=== PATIENT | male | born 1955 | race Caucasian/White ===

== ENCOUNTER 2024-11-27 16:17 | Inpatient (IN) | payer OTHER ==
[~2024-11-27] VITALS: Ht 175.3 cm; Wt 108.9 kg
[2024-11-27] MEDS: ONDANSETRON HCL 4MG/2ML INJ IV STA (16:53)
[2024-11-27] MEDS: METHYLPREDNISOLONE SOD SUCC 125MG/2ML (ACT-O-VIAL) IV STA (16:53)
[2024-11-27] MEDS: MORPHINE SULFATE 4 MG/ML INJ (FOR IV/IM USE) IV STA (16:54)
[2024-11-27] MEDS: IPRATROPIUM BROMIDE (0.02%) 0.5MG/2.5ML NEB HHN STA (16:58)
[2024-11-27] MEDS: ALBUTEROL (0.083%) 2.5MG/3ML NEB HHN STA (16:58)
[2024-11-27 17:07] LABS: BASOPHILS % 1.1 % (0.0-2.0); EOSINOPHILS % 1.0 % (0.0-5.0); HEMATOCRIT. 43.2 % (42.0-52.0); HEMOGLOBIN. 14.2 g/dL (14.0-18.0); LYMPHOCYTES % 23.7 % (20.0-50.0); MEAN PLATELET VOLUME 10.1 fl (7.4-10.4); MONOCYTES % 9.5 % (2.0-8.0); NEUTROPHILS % 64.7 % (40.0-76.0); PLATELET 207 x1000/uL (130-400); RED BLOOD CELL COUNT 4.76 mill/uL (4.7-6.1); RED CELL DISTRIBUTION WIDTH 14.3 % (11.6-14.6)
[2024-11-27 17:24] LABS: CREATININE 1.2 mg/dL (0.6-1.3); UREA NITROGEN BLOOD 28 mg/dL (9-23)
[2024-11-27 17:25] LABS: TROPONIN I HIGH SENSITIVITY 26 ng/L (3.0-53)
[2024-11-27] MEDS ORDERED: ZOLPIDEM TARTRATE 5MG TABLET PO PRN (18:00)
[2024-11-27] MEDS ORDERED: ONDANSETRON HCL 4MG/2ML INJ IV PRN (18:00)
[2024-11-27 18:16] VITALS: PULSE 85; RESP 13; O2SAT 97
[2024-11-27 19:26] VITALS: BP 137/83; PULSE 107; RESP 19; TEMP 36.5; O2SAT 95
[2024-11-27 19:37] VITALS: BP 137/88; PULSE 97; RESP 18; TEMP 37
[2024-11-27 20:21] VITALS: PULSE 100; RESP 20; O2SAT 97
[2024-11-27] MEDS: IPRATROPIUM/ALBUTEROL 0.5-3(2.5)MG/3ML NEB NEB SCH (20:21)
[2024-11-27 20:40] LABS: TROPONIN I HIGH SENSITIVITY 20 ng/L (3.0-53)
[2024-11-27] MEDS: ENOXAPARIN 30MG/0.3ML SYR SUBCUT SCH (20:57)
[2024-11-27] MEDS: METHYLPREDNISOLONE SOD SUCC 40MG/ML (ACT-O-VIAL) IV SCH (22:38)
[2024-11-28] VITALS (12 sets, daily range): BP systolic 110–165; BP diastolic 59–80; PULSE 77–109; RESP 13–25; TEMP 36.3–36.8; O2SAT 93–99
[2024-11-28 07:41] LABS: BASOPHILS % 0.1 % (0.0-2.0); EOSINOPHILS % 0.1 % (0.0-5.0); HEMATOCRIT. 40.7 % (42.0-52.0); HEMOGLOBIN. 13.3 g/dL (14.0-18.0); LYMPHOCYTES % 9.1 % (20.0-50.0); MEAN PLATELET VOLUME 10.2 fl (7.4-10.4); MONOCYTES % 1.2 % (2.0-8.0); NEUTROPHILS % 89.5 % (40.0-76.0); PLATELET 162 x1000/uL (130-400); RED BLOOD CELL COUNT 4.54 mill/uL (4.7-6.1); RED CELL DISTRIBUTION WIDTH 14.3 % (11.6-14.6)
[2024-11-28 07:56] LABS: CREATININE 1.2 mg/dL (0.6-1.3); UREA NITROGEN BLOOD 28 mg/dL (9-23)
[2024-11-28 07:57] LABS: TROPONIN I HIGH SENSITIVITY 13 ng/L (3.0-53)
[2024-11-28] MEDS: PANTOPRAZOLE SODIUM 40 MG/VIAL IV SCH (08:55)
[2024-11-28] MEDS ORDERED: DIPHENHYDRAMINE 50MG/ML VIAL IV NR (10:30)
[2024-11-28] MEDS ORDERED: NALOXONE HCL 0.4MG/ML VIAL IV PRN (10:45)
[2024-11-28] MEDS: DIPHENHYDRAMINE 50MG/ML VIAL IV SCH (11:32)
[2024-11-28] MEDS: ACETAMINOPHEN 325MG TABLET PO PRN (11:37)
[2024-11-28] MEDS: CLONIDINE 0.1MG TABLET PO PRN (16:30)
[2024-11-28 16:53] LABS: TROPONIN I HIGH SENSITIVITY 13 ng/L (3.0-53)
[2024-11-28] MEDS: MONTELUKAST SODIUM 10MG TABLET PO SCH (17:24)
[2024-11-28] MEDS ORDERED: DEXTROSE 50% WATER 50ML SYRINGE IV PRN (21:15)
[2024-11-28] MEDS: BLOOD SUGAR DIAGNOSTIC STRIP TEST SCH (22:00)
[2024-11-28] MEDS: INSULIN LISPRO 100 UNITS/ML SUBCUT SCH (22:54)
[2024-11-29] VITALS (11 sets, daily range): BP systolic 109–144; BP diastolic 74–91; PULSE 72–91; RESP 12–28; TEMP 36.2–36.7; O2SAT 90–97
[2024-11-29 06:47] LABS: HEMATOCRIT. 39.4 % (42.0-52.0); HEMOGLOBIN. 13.0 g/dL (14.0-18.0); MEAN PLATELET VOLUME 10.5 fl (7.4-10.4); PLATELET 162 x1000/uL (130-400); RED BLOOD CELL COUNT 4.40 mill/uL (4.7-6.1); RED CELL DISTRIBUTION WIDTH 14.5 % (11.6-14.6)
[2024-11-29] MEDS ORDERED: BLOOD SUGAR DIAGNOSTIC STRIP TEST SCH (06:50)
[2024-11-29 07:04] LABS: CREATININE 1.1 mg/dL (0.6-1.3); UREA NITROGEN BLOOD 29 mg/dL (9-23)
[2024-11-29] MEDS ORDERED: INSULIN LISPRO 100 UNITS/ML SUBCUT SCH (07:20)
[2024-11-29 07:49] LABS: BAND% 7.0 % (1.0-6.0); LYMPHOCYTES % MANUAL 4.0 % (20.0-50.0); MONOCYTES % MANUAL 1.0 % (2.0-8.0); NEUTROPHILS % MANUAL 88.0 % (45.0-75.0)
[2024-11-29 07:50] LABS: PLATELET ESTIMATE NORMAL
[2024-11-29] MEDS ORDERED: DIPHENHYDRAMINE 50MG/ML VIAL IV PRN (12:15)
[2024-11-29 12:41] LABS: *AMPHETAMINES SCREEN URINE NEGATIVE (NEGATIVE); *BARBITURATES SCREEN URINE NEGATIVE (NEGATIVE); *BENZODIAZEPINES SCREEN URINE NEGATIVE (NEGATIVE); *COCAINE SCREEN URINE NEGATIVE (NEGATIVE); CANNABINOID URINE SCREEN NEGATIVE (NEGATIVE); ECSTASY MDMA SCREEN URINE NEGATIVE (NEGATIVE); METHADONE URINE SCREEN NEGATIVE (NEGATIVE); OPIATES URINE SCREEN PRESUMPTIVE POSITIVE (NEGATIVE); PHENCYCLIDINE URINE SCREEN NEGATIVE (NEGATIVE)
[2024-11-29] MEDS: GUAIFENESIN-DM 200MG-20MG/10ML UDC PO PRN (20:44)
[2024-11-29] MEDS ORDERED: IOHEXOL-350 100 ML BOTTLE ONE (23:39)
[2024-11-30] VITALS (12 sets, daily range): BP systolic 136–152; BP diastolic 47–91; PULSE 72–110; RESP 10–20; TEMP 36.6–36.8; O2SAT 94–100
[2024-11-30 07:26] LABS: HEMATOCRIT. 40.5 % (42.0-52.0); HEMOGLOBIN. 13.4 g/dL (14.0-18.0); MEAN PLATELET VOLUME 10.6 fl (7.4-10.4); PLATELET 145 x1000/uL (130-400); RED BLOOD CELL COUNT 4.50 mill/uL (4.7-6.1); RED CELL DISTRIBUTION WIDTH 14.9 % (11.6-14.6)
[2024-11-30 07:42] LABS: CREATININE 1.1 mg/dL (0.6-1.3)
[2024-11-30 07:43] LABS: UREA NITROGEN BLOOD 29 mg/dL (9-23)
[2024-11-30 09:39] LABS: BAND% 9.0 % (1.0-6.0); LYMPHOCYTES % MANUAL 9.0 % (20.0-50.0); MONOCYTES % MANUAL 3.0 % (2.0-8.0); NEUTROPHILS % MANUAL 79.0 % (45.0-75.0); PLATELET ESTIMATE NORMAL
[2024-11-30] MEDS ORDERED: FLUT1BLS IH (15:20)
[2024-11-30] MEDS ORDERED: OMEP20CA14 PO (15:20)
[2024-11-30] MEDS ORDERED: ATOR40TA70 PO (15:20)
[2024-11-30] MEDS ORDERED: ALLO100T PO (15:20)
[2024-11-30] MEDS ORDERED: FLUT16SP15 NS (15:20)
[2024-11-30] MEDS ORDERED: METF-416 PO (15:20)
[2024-11-30] MEDS ORDERED: MIRT7.5T11 PO (15:20)
[2024-11-30] MEDS ORDERED: ALFU10TA46 PO (15:20)
[2024-11-30] MEDS ORDERED: LEVO25TA7 PO (15:20)
[2024-12-01] VITALS (13 sets, daily range): BP systolic 97–152; BP diastolic 74–97; PULSE 78–96; RESP 14–29; TEMP 36.4–36.7; O2SAT 90–99
[2024-12-01] MEDS: METHYLPREDNISOLONE SOD SUCC 40MG/ML (ACT-O-VIAL) IV SCH (08:23)
[2024-12-01 14:59] LABS: BG BASE EXCESS -0.8 mmol/L (-2.0-3.0); BG CARBOXYHEMOGLOBIN 0.8 % (0.5-1.5); BG DEOXYHEMOGLOBIN 5.8 % (0.0-5.0); BG FRACTION INSPIRED OXYGEN 21; BG HCO3 ACT 22.4 mmol/L (21.0-28.0); BG METHEMOGLOBIN 0.1 % (0.5-1.5); BG OXYGEN SATURATION 94.1 % (94.0-98.0); BG OXYHEMOGLOBIN 93.3 % (94.0-98.0); BG PCO2 33.0 mmHg (35.0-48.0); BG PH 7.449 (7.350-7.450); BG PO2 71.6 mmHg (83.0-108.0); BG SAMPLE SITE LEFT RADIAL; BG TOTAL HEMOGLOBIN 14.5 g/dL (13.5-17.5); BG VENT MODE ROOM AIR
[2024-12-01] MEDS: HYDROCODONE/ACETAMINOPHEN 5/325MG TABLET PO PRN (21:40)
[2024-12-02] VITALS (10 sets, daily range): BP systolic 132–179; BP diastolic 75–97; PULSE 67–104; RESP 13–19; TEMP 36.4–36.8; O2SAT 94–98
[2024-12-02] MEDS: LEVOTHYROXINE SODIUM 25MCG TABLET PO SCH (10:20)
[2024-12-03] VITALS: BP 144/69; PULSE 67; RESP 16; TEMP 36.7; O2SAT 94
[2024-12-03 04:00] VITALS: BP 151/71; PULSE 63; RESP 20; TEMP 37; O2SAT 94
[2024-12-03 08:00] VITALS: BP 106/90; PULSE 81; RESP 16; TEMP 36.4; O2SAT 96
[2024-12-03 12:00] VITALS: BP 140/88; PULSE 82; RESP 16; TEMP 36.8; O2SAT 98
[2024-12-03] MEDS ORDERED: ATOR40TA70 PO (13:28)
[2024-12-03] MEDS ORDERED: ALBU18HF2 IH (13:28)
[2024-12-03] MEDS ORDERED: FLUT1BLS IH (13:28)
[2024-12-03] MEDS ORDERED: LEVO25TA7 PO (13:28)
[2024-12-03] MEDS ORDERED: OMEP20CA14 PO (13:28)
[2024-12-03] MEDS ORDERED: ALLO100T PO (13:28)
[2024-12-03] MEDS ORDERED: MIRT7.5T11 PO (13:28)
[2024-12-03] MEDS ORDERED: ALFU10TA46 PO (13:28)
[2024-12-03] MEDS ORDERED: METF-416 PO (13:28)
[2024-12-03] MEDS ORDERED: IPRATROPIUM/ALBUTEROL 0.5-3(2.5)MG/3ML NEB HHN PRN (15:45)
[2024-12-03 16:00] VITALS: BP 126/98; PULSE 74; RESP 14; TEMP 36.7; O2SAT 99
[2024-12-03 20:00] VITALS: BP 118/65; PULSE 66; RESP 19; TEMP 36.3; O2SAT 96
[2024-12-04] VITALS: BP 131/59; PULSE 73; RESP 18; TEMP 36.4; O2SAT 95
[2024-12-04 04:00] VITALS: PULSE 68; RESP 16; O2SAT 96
[2024-12-04 08:00] VITALS: BP 110/57; PULSE 66; RESP 19; TEMP 36.7; O2SAT 96
[2024-12-04] MEDS: FAMOTIDINE 20MG TABLET PO SCH (08:25)
[2024-12-04 11:56] LABS: BG BASE EXCESS -0.1 mmol/L (-2.0-3.0); BG CARBOXYHEMOGLOBIN 0.8 % (0.5-1.5); BG DEOXYHEMOGLOBIN 3.0 % (0.0-5.0); BG FRACTION INSPIRED OXYGEN 21; BG HCO3 ACT 21.9 mmol/L (21.0-28.0); BG METHEMOGLOBIN 0.0 % (0.5-1.5); BG OXYGEN SATURATION 97.0 % (94.0-98.0); BG OXYHEMOGLOBIN 96.2 % (94.0-98.0); BG PCO2 29.0 mmHg (35.0-48.0); BG PH 7.495 (7.350-7.450); BG PO2 84.7 mmHg (83.0-108.0); BG SAMPLE SITE RIGHT RADIAL; BG TOTAL HEMOGLOBIN 15.6 g/dL (13.5-17.5); BG VENT MODE ROOM AIR
[2024-12-04 12:00] VITALS: BP 102/66; PULSE 88; RESP 20; TEMP 36.7; O2SAT 98
[2024-12-04 16:00] VITALS: BP 179/105; PULSE 85; RESP 18; TEMP 36.8; O2SAT 99
[2024-12-04] MEDS: AMLODIPINE 5MG TABLET PO SCH (17:37)
[2024-12-04] MEDS: LOSARTAN 25 MG TABLET PO SCH (17:38)
[2024-12-04 20:00] VITALS: BP 119/86; PULSE 73; RESP 19; TEMP 37; O2SAT 95
[2024-12-05] VITALS: BP 135/102; PULSE 83; RESP 18; TEMP 36.8; O2SAT 95
[2024-12-05 04:00] VITALS: BP 124/72; PULSE 77; RESP 20; TEMP 36.7; O2SAT 97
[2024-12-05 08:00] VITALS: BP 128/93; PULSE 94; RESP 15; TEMP 36.4; O2SAT 94
[2024-12-05 12:00] VITALS: BP 117/86; PULSE 77; RESP 18; TEMP 36.4; O2SAT 91
[2024-12-05] MEDS: METOPROLOL TARTRATE 25MG TABLET PO SCH (12:43)
[2024-12-05 16:00] VITALS: BP 106/74; PULSE 59; RESP 18; TEMP 36.6; O2SAT 95
[2024-12-05 20:00] VITALS: BP 109/55; PULSE 62; RESP 20; TEMP 36.9; O2SAT 95
[2024-12-06] VITALS: BP 145/63; PULSE 61; RESP 22; TEMP 37; O2SAT 96
[2024-12-06 04:00] VITALS: BP 144/82; PULSE 79; RESP 19; TEMP 36.8; O2SAT 96
[2024-12-06 08:00] VITALS: BP 127/60; PULSE 67; RESP 18; TEMP 36.9; O2SAT 94
[2024-12-06 12:00] VITALS: BP 139/82; PULSE 79; RESP 16; TEMP 36.9; O2SAT 98
[2024-12-06 16:00] VITALS: BP 134/77; PULSE 54; RESP 20; TEMP 36.9; O2SAT 98
[2024-12-06 20:00] VITALS: BP 128/73; PULSE 81; RESP 20; TEMP 36.9; O2SAT 96
[2024-12-07] VITALS: PULSE 61; RESP 19; O2SAT 93
[2024-12-07 04:00] VITALS: PULSE 64
[2024-12-07 08:00] VITALS: BP 140/82; PULSE 64; RESP 20; TEMP 36.7; O2SAT 95
[2024-12-07 12:00] VITALS: BP 137/45; PULSE 64; RESP 17; TEMP 36.6; O2SAT 93
[2024-12-07 16:00] VITALS: BP 130/72; PULSE 57; RESP 19; TEMP 36.6; O2SAT 94
[2024-12-07 20:00] VITALS: BP 144/83; PULSE 73; RESP 21; TEMP 36.5; O2SAT 94
[2024-12-08] VITALS: BP 131/58; PULSE 58; RESP 18; TEMP 37.1
[2024-12-08 04:00] VITALS: BP 131/58; PULSE 58; RESP 18; TEMP 37.1
[2024-12-08 08:00] VITALS: BP 129/75; PULSE 63; RESP 18; TEMP 36.4; O2SAT 98
[2024-12-08 12:00] VITALS: BP 143/79; PULSE 58; RESP 17; TEMP 36.8; O2SAT 96
[2024-12-08 16:00] VITALS: BP 124/90; PULSE 71; RESP 18; TEMP 37.1; O2SAT 97
[2024-12-08 20:00] VITALS: BP 141/106; PULSE 58; RESP 18; TEMP 36.9; O2SAT 97
[2024-12-09] VITALS: BP 115/73; PULSE 86; RESP 18; TEMP 36.8; O2SAT 98
[2024-12-09 04:00] VITALS: BP 127/90; PULSE 83; RESP 16; TEMP 37; O2SAT 96
[2024-12-09 08:00] VITALS: BP 140/70; PULSE 75; RESP 16; TEMP 36.7; O2SAT 97
[2024-12-09 12:00] VITALS: BP 137/82; PULSE 57; RESP 14; TEMP 36.9; O2SAT 97
[2024-12-09 16:00] VITALS: BP 124/64; PULSE 60; RESP 21; TEMP 36.5; O2SAT 96
[2024-12-09 20:00] VITALS: BP 133/71; PULSE 63; RESP 18; TEMP 36.3; O2SAT 96
[2024-12-10] VITALS: BP 116/66; PULSE 63; RESP 18; TEMP 36.1; O2SAT 95
[2024-12-10 04:00] VITALS: BP 141/87; PULSE 72; RESP 18; TEMP 36.2; O2SAT 95
[2024-12-10 08:00] VITALS: BP 145/58; PULSE 63; RESP 20; TEMP 35.8; O2SAT 97
[2024-12-10 12:00] VITALS: BP 132/75; PULSE 60; RESP 20; TEMP 36.3; O2SAT 100
[2024-12-10 16:00] VITALS: BP 145/75; PULSE 60; RESP 20; TEMP 36.2; O2SAT 100
[2024-12-10 20:00] VITALS: BP 126/61; PULSE 60; RESP 18; TEMP 36.5; O2SAT 95
[2024-12-11] VITALS: BP 151/75; PULSE 63; RESP 17; TEMP 36.9; O2SAT 98
[2024-12-11 04:00] VITALS: BP 126/59; PULSE 56; RESP 18; TEMP 36.7; O2SAT 97
[2024-12-11 08:00] VITALS: BP 130/61; PULSE 59; RESP 20; TEMP 36.1; O2SAT 97
[2024-12-11 12:00] VITALS: BP 108/78; PULSE 87; RESP 18; TEMP 36.3; O2SAT 99
[2024-12-11 16:00] VITALS: BP 121/75; PULSE 63; RESP 18; TEMP 36.4; O2SAT 96
[2024-12-11 20:00] VITALS: BP 122/63; PULSE 70; RESP 20; TEMP 36.4; O2SAT 98
[2024-12-12] VITALS: BP 122/73; PULSE 74; RESP 19; TEMP 36.5; O2SAT 98
[2024-12-12 04:00] VITALS: BP 120/76; PULSE 79; RESP 18; TEMP 36.4; O2SAT 98
[2024-12-12 08:00] VITALS: BP 122/67; PULSE 70; RESP 17; TEMP 36.1; O2SAT 95
[2024-12-12 12:00] VITALS: BP 143/82; PULSE 72; RESP 17; TEMP 36.2; O2SAT 95
[2024-12-12 16:00] VITALS: BP 121/84; PULSE 91; RESP 17; TEMP 36.3; O2SAT 96
[2024-12-12 20:00] VITALS: BP 125/75; PULSE 69; RESP 18; TEMP 36.3; O2SAT 98
[2024-12-13] VITALS: BP 154/55; PULSE 87; RESP 18; TEMP 37.2; O2SAT 97
[2024-12-13 04:00] VITALS: BP 105/55; PULSE 85; RESP 18; TEMP 36.9; O2SAT 98
[2024-12-13 08:00] VITALS: BP 128/85; PULSE 77; RESP 17; TEMP 36.4; O2SAT 97
[2024-12-13 12:00] VITALS: BP 127/82; PULSE 78; RESP 17; TEMP 36.2; O2SAT 97
[2024-12-13 16:00] VITALS: BP 128/86; PULSE 87; RESP 17; TEMP 36.1; O2SAT 98
[2024-12-13 20:00] VITALS: BP 118/68; PULSE 78; RESP 18; TEMP 36.6; O2SAT 97
[2024-12-14] VITALS: BP 147/90; PULSE 77; RESP 15; TEMP 36.3; O2SAT 98
[2024-12-14 04:00] VITALS: RESP 16
[2024-12-14 08:00] VITALS: BP 145/69; PULSE 73; RESP 20; TEMP 35.9; O2SAT 96
[2024-12-14 12:00] VITALS: BP 149/69; PULSE 76; RESP 20; TEMP 36.2; O2SAT 98
[2024-12-14 16:00] VITALS: BP 140/83; PULSE 90; RESP 20; TEMP 36.2; O2SAT 98
[2024-12-14 20:00] VITALS: BP 116/65; PULSE 80; RESP 18; TEMP 36.6; O2SAT 95
[2024-12-15 08:00] VITALS: BP 142/85; PULSE 81; RESP 17; TEMP 36.2; O2SAT 98
[2024-12-15 12:00] VITALS: BP 130/87; PULSE 73; RESP 18; TEMP 36.4; O2SAT 100
[2024-12-15 16:00] VITALS: BP 138/90; PULSE 84; RESP 18; TEMP 36.3; O2SAT 98
[2024-12-16 08:00] VITALS: BP 130/96; PULSE 74; RESP 20; TEMP 36; O2SAT 98
[2024-12-16 12:00] VITALS: BP 128/81; PULSE 82; RESP 20; TEMP 36.6; O2SAT 98
[2024-12-16 16:00] VITALS: BP 122/72; PULSE 86; RESP 20; TEMP 36.6; O2SAT 97
[2024-12-16 20:00] VITALS: BP 129/84; PULSE 91; RESP 20; TEMP 37; O2SAT 97
[2024-12-17] VITALS: BP 136/81; PULSE 82; RESP 20; TEMP 36.9; O2SAT 97
[2024-12-17 04:00] VITALS: BP 127/75; PULSE 76; RESP 20; TEMP 37; O2SAT 98
[2024-12-17 08:00] VITALS: BP 140/88; PULSE 79; RESP 18; TEMP 36.3; O2SAT 96
[2024-12-17 12:00] VITALS: BP 147/84; PULSE 77; RESP 16; TEMP 36.2; O2SAT 98
[2024-12-17 14:57] VITALS: BP 140/88; PULSE 79; TEMP 97.3; O2SAT 98
== END 2024-12-17 15:45 | disposition home or self-care (01) | DRG 190 ==
LOC: ER 16:17 → EDBEDREQTM 17:55 → EDBEDREQ 17:55 → CANRESERV 18:01 → ENRESERV 18:01 → 3WST 18:47 → 7EST 12-10 00:10
PROVIDERS: ADMIT Internal Medicine; ATTEND Internal Medicine
DX: J44.1 Chronic obstructive pulmonary disease with (acute) exacerbation (principal); I50.31 Acute diastolic (congestive) heart failure; J96.00 Acute respiratory failure, unspecified whether with hypoxia or hypercapnia; I11.0 Hypertensive heart disease with heart failure; E11.9 Type 2 diabetes mellitus without complications; Z86.73 Personal history of transient ischemic attack (TIA), and cerebral infarction without residual deficits; Z86.16 Personal history of COVID-19; E03.9 Hypothyroidism, unspecified; E78.5 Hyperlipidemia, unspecified; M10.9 Gout, unspecified; Z96.653 Presence of artificial knee joint, bilateral; Z91.041 Radiographic dye allergy status
CPT/HCPCS: 36415; 36600; 71045; 71275; 74176; 80048; 80305; 82375; 82805; 82962; 83036; 83880; 84484; 85025; 85379; 93005; 93306; 93970; 94070; 94640; 94664; 96374; 96375; 97116; 97162; 97530; 98960; 99285; A4606; J1200; J1650; J1815; J2270; J2405; J2470; J2919; Q9967